=== PATIENT | male | born 1950 | race Caucasian/White ===

== ENCOUNTER 2025-03-25 23:03 | Emergency (ER) | payer MEDICARE, OTHER ==
[~2025-03-25] VITALS: Ht 172.7 cm; Wt 72.7 kg
[2025-03-25 23:23] VITALS: BP 146/92; PULSE 82; RESP 16; TEMP 97.5; O2SAT 97
== END 2025-03-26 00:57 | disposition home or self-care (01) ==
LOC: EMS 23:32
DX: T83.021A Displacement of indwelling urethral catheter, initial encounter (principal); N40.0 Benign prostatic hyperplasia without lower urinary tract symptoms; F17.210 Nicotine dependence, cigarettes, uncomplicated; Z90.89 Acquired absence of other organs
CPT/HCPCS: 51702; 99284; Z7502

== ENCOUNTER 2025-03-27 09:23 | Inpatient (IN) | payer MEDICARE, OTHER ==
[~2025-03-27] VITALS: Ht 172.7 cm; Wt 74.1 kg
[2025-03-27 10:29] LABS: BASOPHILS % (AUTO) 0.7 % (0.0-2.0); EOSINOPHILS % (AUTO) 4.9 % (1.0-6.0); HEMATOCRIT 39.1 % (41-53); HEMOGLOBIN 13.8 g/dL (13.5-17.5); LYMPHOCYTES # (AUTO) 1.9 K/uL (1.0-4.8); LYMPHOCYTES % (AUTO) 29.6 % (22.0-44.0); MEAN CORPUSCULAR HEMOGLOBIN 36.7 pg (26.0-34.0); MEAN CORPUSCULAR HGB CONC 35.3 G/dL (31.0-37.0); MEAN CORPUSCULAR VOLUME 104 fL (80-100); MONOCYTES # (AUTO) 0.8 K/uL (0.1-1.0); NEUTROPHILS # (AUTO) 3.5 K/uL (1.8-7.7); NEUTROPHILS % (AUTO) 52.8 % (40.0-70.0); PLATELET COUNT (AUTO) 262 K/uL (150-450); RED BLOOD CELL COUNT(AUTO) 3.77 MIL/uL (4.50-5.90); WHITE BLOOD COUNT (AUTO) 6.5 K/uL (4.5-11.0)
[2025-03-27 10:38] LABS: ANION GAP 8 mmol/L (8-16); CALCIUM, TOTAL 8.7 mg/dL (8.8-10.5); CARBON DIOXIDE 27 mmol/L (22-29); CHLORIDE 109 mmol/L (98-107); CREATININE 1.03 mg/dL (0.60-1.30); GLOMERULAR FILTR. RATE CALC > 60 mL/min (>60); GLUCOSE,RANDOM 85 mg/dL (70-110); POTASSIUM 3.3 mmol/L (3.5-5.1); SODIUM SERUM 144 mmol/L (136-145); UREA NITROGEN, BLOOD 13 mg/dL (7-18)
[2025-03-27 10:45] LABS: ALBUMIN 2.9 g/dL (3.4-5.0); BILIRUBIN,DIRECT 0.1 mg/dL (0.00-0.20); BILIRUBIN,TOTAL 0.4 mg/dL (0.1-1.0); TOTAL PROTEIN, SERUM 5.9 g/dL (6.4-8.2)
[2025-03-27 11:08] LABS: APPEARANCE,URINE TURBID (CLEAR); BILIRUBIN,URINE NEGATIVE (NEGATIVE); COLOR,URINE YELLOW (YELLOW); GLUCOSE, URINE (UA) NEGATIVE (NEGATIVE); KETONES,URINE NEGATIVE (NEGATIVE); LEUKOCYTE ESTERASE ,URINE LARGE (NEGATIVE); NITRATE,URINE POSITIVE (NEGATIVE); OCCULT BLOOD,URINE LARGE (NEGATIVE); PROTEIN,URINE 100-200,SEE CONFIRM mg/dL (NEGATIVE); SPECIFIC GRAVITIY, URINE 1.015 (1.003-1.030); UROBILINOGEN,URINE <=1.0 mg/dL (<=1.0)
[2025-03-27 11:15] LABS: SULFOSALICYLIC ACID,URINE 2+ (Negative)
[2025-03-27 11:18] LABS: RBC,URINE 26-50 /HPF (0-2)
[2025-03-27 11:19] LABS: BACTERIA,URINE Many /HPF (None Seen); WBC,URINE >100 /HPF (0-5)
[2025-03-27] MEDS: CefTRIAXone 1 GM/DEXTROSE 50 ML IV ONE (12:24)
[2025-03-27] MEDS ORDERED: HYDROCODONE/ACETAMINOPHEN 5-325 MG TABLET PO PRN (14:30)
[2025-03-27] MEDS ORDERED: MAGNESIUM HYDROXIDE SUSPENSION 30 ML UDCUP PO PRN (14:30)
[2025-03-27] MEDS ORDERED: ZOLPIDEM TARTRATE 5 MG TABLET PO PRN (14:30)
[2025-03-27] MEDS ORDERED: MORPHINE SULFATE 2 MG/ML SYRINGE IVP PRN (14:30)
[2025-03-27] MEDS ORDERED: ACETAMINOPHEN 325 MG TABLET PO PRN (14:30)
[2025-03-27] MEDS ORDERED: ONDANSETRON HCL 4 MG/2 ML VIAL IVP PRN (14:30)
[2025-03-27] MEDS ORDERED: BISACODYL 10 MG RECTAL RECTAL SUPPOSITORY PR PRN (14:30)
[2025-03-27] MEDS: HEPARIN SODIUM,PORCINE 5,000 UNITS/ML VIAL SQ SCH (15:15)
[2025-03-27 19:20] VITALS: O2SAT 99
[2025-03-27] MEDS: POTASSIUM CHLORIDE 20 MEQ ER TABLET PO ONE (20:15)
[2025-03-27] MEDS: DOCUSATE SODIUM 100 MG CAPSULE PO SCH (20:47)
[2025-03-27 21:26] VITALS: BP 142/92; PULSE 63; RESP 18; TEMP 98.4; O2SAT 97
[2025-03-28 04:48] VITALS: BP 100/64; PULSE 55; RESP 18; TEMP 98.1; O2SAT 97
[2025-03-28 08:05] LABS: BASOPHILS % (AUTO) 0.7 % (0.0-2.0); EOSINOPHILS % (AUTO) 5.1 % (1.0-6.0); HEMATOCRIT 40.3 % (41-53); LYMPHOCYTES # (AUTO) 2.3 K/uL (1.0-4.8); LYMPHOCYTES % (AUTO) 26.1 % (22.0-44.0); MEAN CORPUSCULAR HEMOGLOBIN 36.7 pg (26.0-34.0); MEAN CORPUSCULAR HGB CONC 34.8 G/dL (31.0-37.0); MEAN CORPUSCULAR VOLUME 106 fL (80-100); MONOCYTES # (AUTO) 0.9 K/uL (0.1-1.0); MONOCYTES % (AUTO) 9.8 % (2.0-9.0); NEUTROPHILS # (AUTO) 5.1 K/uL (1.8-7.7); NEUTROPHILS % (AUTO) 58.3 % (40.0-70.0); PLATELET COUNT (AUTO) 283 K/uL (150-450); RED BLOOD CELL COUNT(AUTO) 3.82 MIL/uL (4.50-5.90); RED CELL DISTRIBUTION WIDTH 14.2 % (11.5-14.5); WHITE BLOOD COUNT (AUTO) 8.7 K/uL (4.5-11.0)
[2025-03-28 08:19] LABS: RBC MORPHOLOGY COMMENT ABNORMAL RBC MORPH
[2025-03-28 08:23] LABS: ANION GAP 8 mmol/L (8-16); CALCIUM, TOTAL 8.9 mg/dL (8.8-10.5); CARBON DIOXIDE 27 mmol/L (22-29); CHLORIDE 106 mmol/L (98-107); CREATININE 1.04 mg/dL (0.60-1.30); GLOMERULAR FILTR. RATE CALC > 60 mL/min (>60); GLUCOSE,RANDOM 92 mg/dL (70-110); POTASSIUM 3.6 mmol/L (3.5-5.1); SODIUM SERUM 141 mmol/L (136-145); UREA NITROGEN, BLOOD 13 mg/dL (7-18)
[2025-03-28 08:51] VITALS: BP 116/61; PULSE 54; RESP 18; TEMP 98.2; O2SAT 96
[2025-03-28] MEDS: PANTOPRAZOLE SODIUM 40 MG DR TABLET PO SCH (09:09)
[2025-03-28] MEDS: CefTRIAXone 1 GM/DEXTROSE 50 ML IV SCH (12:31)
[2025-03-28] MEDS ORDERED: SODIUM CHLORIDE 0.9% 500 ML IV ONE (12:36)
[2025-03-28 16:20] VITALS: BP 126/81; PULSE 60; RESP 18; TEMP 97.7; O2SAT 98
[2025-03-28 20:37] VITALS: BP 115/70; PULSE 57; RESP 18; TEMP 98.8; O2SAT 96
[2025-03-29 03:23] VITALS: BP 131/76; PULSE 56; RESP 18; TEMP 98.2; O2SAT 97
[2025-03-29 07:58] LABS: ANION GAP 8 mmol/L (8-16); CALCIUM, TOTAL 8.8 mg/dL (8.8-10.5); CARBON DIOXIDE 28 mmol/L (22-29); CHLORIDE 104 mmol/L (98-107); GLOMERULAR FILTR. RATE CALC > 60 mL/min (>60); GLUCOSE,RANDOM 107 mg/dL (70-110); POTASSIUM 3.5 mmol/L (3.5-5.1); SODIUM SERUM 140 mmol/L (136-145); UREA NITROGEN, BLOOD 9 mg/dL (7-18)
[2025-03-29 08:00] LABS: BASOPHILS % (AUTO) 0.9 % (0.0-2.0); EOSINOPHILS % (AUTO) 5.2 % (1.0-6.0); HEMATOCRIT 38.2 % (41-53); HEMOGLOBIN 13.3 g/dL (13.5-17.5); LYMPHOCYTES # (AUTO) 2.2 K/uL (1.0-4.8); LYMPHOCYTES % (AUTO) 28.6 % (22.0-44.0); MEAN CORPUSCULAR HEMOGLOBIN 36.8 pg (26.0-34.0); MEAN CORPUSCULAR HGB CONC 34.7 G/dL (31.0-37.0); MEAN CORPUSCULAR VOLUME 106 fL (80-100); MONOCYTES # (AUTO) 0.7 K/uL (0.1-1.0); MONOCYTES % (AUTO) 9.3 % (2.0-9.0); NEUTROPHILS # (AUTO) 4.3 K/uL (1.8-7.7); PLATELET COUNT (AUTO) 244 K/uL (150-450); RED BLOOD CELL COUNT(AUTO) 3.61 MIL/uL (4.50-5.90); RED CELL DISTRIBUTION WIDTH 14.3 % (11.5-14.5); WHITE BLOOD COUNT (AUTO) 7.6 K/uL (4.5-11.0)
[2025-03-29 09:05] VITALS: BP 144/87; PULSE 59; RESP 20; TEMP 98.6; O2SAT 97
[2025-03-29 09:46] LABS: RBC MORPHOLOGY COMMENT ABNORMAL RBC MORPH
[2025-03-29] MEDS ORDERED: CEPH-558 PO (10:20)
== END 2025-03-29 17:15 | disposition home health service (06) | DRG 699 ==
LOC: EMS 09:27 → EDH 14:27 → 6S 21:21 → 4E 03-28 19:55
PROVIDERS: ADMIT Internal Medicine; ATTEND Internal Medicine
DX: T83.511A Infection and inflammatory reaction due to indwelling urethral catheter, initial encounter (principal); E46 Unspecified protein-calorie malnutrition; N39.0 Urinary tract infection, site not specified; E87.6 Hypokalemia; N40.1 Benign prostatic hyperplasia with lower urinary tract symptoms; F17.210 Nicotine dependence, cigarettes, uncomplicated; R33.8 Other retention of urine; Z87.442 Personal history of urinary calculi; Z68.24 Body mass index [BMI] 24.0-24.9, adult
CPT/HCPCS: 74176; 80048; 80076; 81001; 81002; 85025; 87077; 87086; 87186; 96365; 97162; 99285; G0378; J0696; J1644; J7040

== ENCOUNTER 2025-04-03 02:55 | Emergency (ER) | payer MEDICARE ==
[~2025-04-03] VITALS: Ht 172.7 cm; Wt 71.4 kg
[~2025-04-03 02:55] MED LIST: CEPH-558 PO
[2025-04-03 03:15] VITALS: TEMP 97.9
[2025-04-03 04:33] LABS: APPEARANCE,URINE HAZY (CLEAR); GLUCOSE, URINE (UA) NEGATIVE (NEGATIVE); LEUKOCYTE ESTERASE ,URINE LARGE (NEGATIVE); NITRATE,URINE NEGATIVE (NEGATIVE); OCCULT BLOOD,URINE LARGE (NEGATIVE); SPECIFIC GRAVITIY, URINE 1.018 (1.003-1.030)
[2025-04-03 04:41] LABS: SQUAMOUS EPITHELIAL CELL,UR Few /LPF (None Seen); SULFOSALICYLIC ACID,URINE 4+ (Negative)
[2025-04-03] MEDS ORDERED: CEPH-558 PO (04:55)
[2025-04-03 05:02] VITALS: BP 131/80; PULSE 72; RESP 17; O2SAT 95
[2025-04-03] MEDS: CefTRIAXone SODIUM 1 GM/VIAL IM ONE (05:13)
[2025-04-03] MEDS: LIDOCAINE/PF 1% 2 ML VIAL IM ONE (05:13)
== END 2025-04-03 06:19 | disposition home or self-care (01) ==
LOC: EMS 02:56
DX: T83.021A Displacement of indwelling urethral catheter, initial encounter (principal); F17.210 Nicotine dependence, cigarettes, uncomplicated; Z87.19 Personal history of other diseases of the digestive system; Z90.89 Acquired absence of other organs; Y84.6 Urinary catheterization as the cause of abnormal reaction of the patient, or of later complication, without mention of misadventure at the time of the procedure
CPT/HCPCS: 99284; 81001; 87086; 51702; 81002; J0696; J3490

== ENCOUNTER 2025-04-08 07:11 | Emergency (ER) | payer MEDICARE, OTHER ==
[~2025-04-08] VITALS: Ht 172.7 cm; Wt 71.4 kg
[2025-04-08 07:15] VITALS: TEMP 97.5
[2025-04-08] MEDS ORDERED: CIPR250T6 PO (08:57)
[2025-04-08 09:22] VITALS: BP 125/91; PULSE 81; RESP 18; O2SAT 98
== END 2025-04-08 11:56 | disposition home or self-care (01) ==
LOC: EMS 07:56
DX: T83.9XXA Unspecified complication of genitourinary prosthetic device, implant and graft, initial encounter (principal); F17.210 Nicotine dependence, cigarettes, uncomplicated; Z87.19 Personal history of other diseases of the digestive system; Z90.89 Acquired absence of other organs; Z79.899 Other long term (current) drug therapy; Y99.8 Other external cause status
CPT/HCPCS: 51702; 99284; Z7502

== ENCOUNTER 2025-04-10 08:46 | Emergency (ER) | payer MEDICARE, OTHER ==
[~2025-04-10] VITALS: Ht 172.7 cm; Wt 65.9 kg
[~2025-04-10 08:46] MED LIST changes: +CIPR250T6 PO
[2025-04-10 09:01] VITALS: BP 132/70; PULSE 88; RESP 19; TEMP 98.6; O2SAT 96
== END 2025-04-10 12:02 | disposition home or self-care (01) ==
LOC: EMS 08:48
DX: T83.021A Displacement of indwelling urethral catheter, initial encounter (principal); F17.210 Nicotine dependence, cigarettes, uncomplicated; Z90.89 Acquired absence of other organs; Z87.19 Personal history of other diseases of the digestive system; Z79.899 Other long term (current) drug therapy
CPT/HCPCS: 51702; 99284; Z7502